=== PATIENT | female | born 1995 | race Two or more races ===

== ENCOUNTER 2019-10-29 07:14 | Emergency (ER) | payer OTHER ==
[~2019-10-29] VITALS: Ht 160 cm; Wt 59.0 kg
[2019-10-29 07:31] VITALS: BP 147/87
== END 2019-10-29 08:23 | disposition home or self-care (01) ==
LOC: ER 07:14 → EEVIPCON 07:14 → ER 08:23
DX: J02.9 Acute pharyngitis, unspecified (principal); F41.9 Anxiety disorder, unspecified; Z20.828 Contact with and (suspected) exposure to other viral communicable diseases
CPT/HCPCS: 71045; 87070; 87804; 87880; 99284; C9803; U0003

== ENCOUNTER 2021-04-24 20:54 | Emergency (ER) | payer SELFPAY ==
[~2021-04-24] VITALS: Ht 177.8 cm; Wt 77.1 kg
[2021-04-24] MEDS ORDERED: KETOROLAC TROMETH 30 MG/ML 1ML VIAL IM ONE (22:00)
[2021-04-24] MEDS ORDERED: IBUPROFEN 600 MG TAB PO ONE (23:15)
[2021-04-24 23:24] VITALS: BP 136/95
== END 2021-04-24 23:40 | disposition home or self-care (01) ==
LOC: ER 20:54
DX: U07.1 COVID-19 (principal); M79.10 Myalgia, unspecified site
CPT/HCPCS: 36415; 87426; 99283; C9803; U0003